=== PATIENT | male | born 1940 | race Caucasian/White ===

== ENCOUNTER → 2020-09-21 | Outpatient (REF) | payer MEDICARE, OTHER | LOC: M LAB REF 19:06 | PROVIDERS: ATTEND Dermatology | DX: C44.619 Basal cell carcinoma of skin of left upper limb, including shoulder (principal); D23.5 Other benign neoplasm of skin of trunk ==

== ENCOUNTER → 2023-05-13 | Outpatient (CLI) | payer MEDICARE, OTHER ==
[~2023-05-13] MED LIST: CARV12.5 PO; CARV25TA PO; CETALIQ TOP; CLOB5CR TOP; ECOT81TA5 PO; ENTR1TAB PO; FERR324T21 PO; FISH1CAP26 FT; GLIP10TA PO; GLIP10TA18 PO; HYDR12CA PO; JANU100T PO; LEVOTAB10 PO; LISI20TA33 PO; METF10004 PO; QUIN1TAB4 PO; ROSU40TA4 PO; XTAN40CA PO; [UNRECOGNIZED DRUG - CODE] TP
== END ==
LOC: M ONCR 09:02
PROVIDERS: ATTEND General Practice
DX: C79.51 Secondary malignant neoplasm of bone (principal); C61 Malignant neoplasm of prostate; Z71.2 Person consulting for explanation of examination or test findings; Z85.828 Personal history of other malignant neoplasm of skin; Z85.038 Personal history of other malignant neoplasm of large intestine; Z79.84 Long term (current) use of oral hypoglycemic drugs; Z79.82 Long term (current) use of aspirin; Z79.899 Other long term (current) drug therapy; Z90.49 Acquired absence of other specified parts of digestive tract

== ENCOUNTER 2023-06-05 13:04 | Outpatient (RCR) | payer MEDICARE, OTHER | END 2023-06-11 | LOC: M ONCR 13:04 | PROVIDERS: ATTEND General Practice | DX: Z51.0 Encounter for antineoplastic radiation therapy (principal); C79.51 Secondary malignant neoplasm of bone ==

== ENCOUNTER → 2023-08-25 | Outpatient (CLI) | payer MEDICARE, OTHER ==
[~2023-08-25] MED LIST changes: -ROSU40TA4 PO; +ROSU40TA63 PO
== END ==
LOC: M ONCR 13:51
PROVIDERS: ATTEND General Practice
DX: C61 Malignant neoplasm of prostate (principal); C79.51 Secondary malignant neoplasm of bone; Z71.2 Person consulting for explanation of examination or test findings; Z79.818 Long term (current) use of other agents affecting estrogen receptors and estrogen levels; Z79.84 Long term (current) use of oral hypoglycemic drugs; Z79.899 Other long term (current) drug therapy; Z92.3 Personal history of irradiation

== ENCOUNTER → 2024-02-25 | Outpatient (CLI) | payer MEDICARE, OTHER ==
[~2024-02-25] MED LIST changes: -ROSU40TA63 PO; +ROSU40TA81 PO; +VENL75CA47 PO
== END ==
LOC: M ONCR 13:21
PROVIDERS: ATTEND General Practice
DX: C61 Malignant neoplasm of prostate (principal); C79.51 Secondary malignant neoplasm of bone; Z92.3 Personal history of irradiation; R23.2 Flushing; Z79.899 Other long term (current) drug therapy; Z79.818 Long term (current) use of other agents affecting estrogen receptors and estrogen levels; Z79.82 Long term (current) use of aspirin; Z79.84 Long term (current) use of oral hypoglycemic drugs

== ENCOUNTER → 2024-08-24 | Outpatient (CLI) | payer MEDICARE, OTHER ==
[~2024-08-24] MED LIST changes: +GLIP-320 PO; -GLIP10TA18 PO
== END ==
LOC: M ONCR 12:30
PROVIDERS: ATTEND General Practice
DX: C79.51 Secondary malignant neoplasm of bone (principal); C61 Malignant neoplasm of prostate; Z79.69 Long term (current) use of other immunomodulators and immunosuppressants; Z79.82 Long term (current) use of aspirin; Z79.84 Long term (current) use of oral hypoglycemic drugs; Z79.899 Other long term (current) drug therapy; Z92.3 Personal history of irradiation

== ENCOUNTER → 2025-02-22 | Outpatient (CLI) | payer MEDICARE, OTHER ==
[~2025-02-22] MED LIST changes: +HYDR12.510 PO; -HYDR12CA PO
== END ==
LOC: M ONCR 13:01
PROVIDERS: ATTEND General Practice
DX: C61 Malignant neoplasm of prostate (principal); Z85.830 Personal history of malignant neoplasm of bone; Z79.818 Long term (current) use of other agents affecting estrogen receptors and estrogen levels; Z92.3 Personal history of irradiation; Z79.84 Long term (current) use of oral hypoglycemic drugs; Z79.82 Long term (current) use of aspirin; Z79.899 Other long term (current) drug therapy